=== PATIENT | female | born 1970 ===

== ENCOUNTER 2017-05-11 08:54 | Day surgery (SDC) | payer OTHER ==
[2017-05-02 11:53] VITALS: BMI 21.3
[2017-05-11 10:03] LABS: HEMATOCRIT 25.4 % (34.0-47.0); MEAN CELL VOLUME 70.4 fl (81.0-99.0); MEAN CORPUSCULAR HEMOGLOBIN 21.5 pg (27.0-31.0); MEAN CORPUSCULAR HGB CONC 30.5 g/dL (33.0-37.0); RED CELL DISTRIBUTION WIDTH 22.4 % (11.5-14.5)
--- NOTE | 2017-05-11 11:09 | CP.SDSHP ---
Same Day Surgery H & P - History Proposed Procedure: Laparoscopic BTL/ hysteroscopy and EA Pre-Op Diagnosis: multiparity and voluntary sterilization; severe menorrhagia and hx of anemia - Previous Medical/Surgical History Misc: Anemia Previous Surgical History: ear and eye surgery 1974; Tonsilectomy 1974;TOPx4; D/ C for spt ab. - Allergies Allergies: Allergies No Known Allergies Allergy (Verified 05/11/17 09:56) - Current Medications Current Medications: alprazolan - Physical Exam General Appearance: awake alert w/o x3 Vital Signs: Vital Signs 05/11/17 05/11/17 09:43 09:50 Temperature 98 F Pulse Rate 66 66 Respiratory 18 Rate Blood Pressure 116/70 O2 Sat by Pulse 100 Oximetry Mental Status: Alert & Oriented x3 Neuro: WNL Heart: WNL Lungs: WNL GI: WNL - {Optional Preform as Required} Breast: WNL Abdomen: WNL Integument: WNL QUALITY PROCESS ENGINEER: WNL - Impression Impression: multiparity/voluntary sterilization and severe menorrhagia and hx of anemia - Date & Time Date: 05/11/17 Time: 11:12 Short Stay Discharge - Short Stay Discharge Admitting Diagnosis/Reason for Visit: N92.1/Z64.1/D64.9 Disposition: HOME/ ROUTINE Referrals: Alek Corcoran MD [Primary Care Provider] -
[2017-05-11] MEDS ORDERED: Rocuronium 10 mg/ml (5 ml) ONE (11:28)
[2017-05-11] MEDS ORDERED: Propofol 10 mg/ml Inj (20 ML) ONE (11:28)
[2017-05-11] MEDS ORDERED: ePHEDrine 50 mg/ml Inj ONE ×3 (11:28→12:59)
[2017-05-11] MEDS ORDERED: Succinylcholine 200 mg/10 ml Inj IV ONE (11:28)
[2017-05-11] MEDS ORDERED: Lidocaine 4% (Laryng-O-Jet) Kit MM ONE (11:28)
[2017-05-11] MEDS ORDERED: Midazolam 2 MG/2 ML VIAL ONE (11:31)
[2017-05-11] MEDS ORDERED: Lactated Ringer's 1,000 ML IV ONE (11:45)
[2017-05-11] MEDS ORDERED: Sodium Chloride 0.9% 1,000 ML IV ONE (11:50)
[2017-05-11] MEDS ORDERED: Dexamethasone 4 mg/1 ml ONE (12:12)
[2017-05-11] MEDS ORDERED: Lactated Ringer's 1,000 ML IV SCH ×2 (13:45→15:00)
[2017-05-11] MEDS ORDERED: Oxycodone/Acetaminophen 5/325 mg Tab PO PRN (15:06)
--- NOTE | 2017-05-11 15:14 | CP.SDSHP ---
Same Day Surgery H & P - Allergies Allergies: Allergies No Known Allergies Allergy (Verified 05/11/17 09:56) - Physical Exam Vital Signs: Vital Signs 05/11/17 05/11/17 05/11/17 09:43 09:50 13:37 Temperature 98 F 95.8 F L Pulse Rate 66 66 74 Respiratory 18 18 Rate Blood Pressure 116/70 157/90 H O2 Sat by Pulse 100 100 Oximetry 05/11/17 05/11/17 05/11/17 13:50 14:05 14:20 Temperature 96 F L 96.4 F L 96.6 F L Pulse Rate 68 62 61 Respiratory 18 20 20 Rate Blood Pressure 165/90 H 149/93 H 147/67 O2 Sat by Pulse 100 100 100 Oximetry 05/11/17 14:35 Temperature 97 F L Pulse Rate 58 L Respiratory 20 Rate Blood Pressure 136/71 O2 Sat by Pulse 100 Oximetry Short Stay Discharge - Short Stay Discharge Admitting Diagnosis/Reason for Visit: N92.1/Z64.1/D64.9 Referrals: Alek Corcoran MD [Primary Care Provider] - Follow-up: 2 wks Additional Instructions (Diet, Activity): pelvic and bed rest and folllow up in office 2 wks Progress Note/Discharge Note with Instructions: Tolerated procedure well and recovered well Pt was explained surgery findings and will D/C home this pm when tolerating diet and folllow up office 2 wks Instructons given
[2017-05-11 16:09] VITALS: RESP 18; TEMP 97.9
[2017-05-11] MEDS ORDERED: Oxycodone/Acetaminophen 5/325 mg Tab PO ONE (16:10)
[2017-05-11 17:03] VITALS: BP 143/78; PULSE 66; O2SAT 100
--- NOTE | 2017-05-12 13:16 | OP ---
PROCEDURE DATE: 05/11/2017 PREOPERATIVE DIAGNOSES: 1. Multiparity and voluntary sterilization. 2. Severe menometrorrhagia. 3. History of anemia. POSTOPERATIVE DIAGNOSES: 1. Multiparity and voluntary sterilization. 2. Endometrial polyps. OPERATION PERFORMED: 1. Laparoscopy with bilateral tubal sterilization. 2. Hysteroscopy with endometrial polypectomy and dilatation and curettage. 3. Endometrial ablation using NovaSure. SURGEON: Bobby Cleary MD TYPE OF ANESTHESIA: General endotracheal. ANESTHESIA ADMINISTERED BY: Sarah Keyes MD FINDINGS: 1. Cervix appears closed, thick, posterior. No gross lesion to visualization. 2. Uterus appears boggy to palpation, mobile, upper limit size, sounded to 9 cm. 3. Laparoscopy showed uterus to be upper limit size with a small fibroid on the anterior left aspect of the uterus. 4. Laparoscopic tubal ligation performed using electrocoagulation. 5. Hysteroscopy performed showing a sloughing endometrium and an endometrial polyp, which was removed. 6. Endometrial ablation performed using NovaSure for 45 seconds without any complications. 7. Postprocedure hysteroscopy performed confirmed blanching of the endometrial cavity and laparoscopy revealed no uterine defect from the hysteroscopy and endometrial ablation. ESTIMATED BLOOD LOSS: 100 mL. DRAINS USED: None. REPLACEMENTS USED: None. DESCRIPTION OF PROCEDURE: The patient was taken to the operating room and placed on the operating table in a supine position. Following induction of general endotracheal anesthesia, the patient was then replaced in the dorsal lithotomy position. Perineal, genital and abdominal areas were draped and prepped in a usual sterile manner. At this time, we then proceeded to place a sterile catheter into the bladder and left there for the entire duration of the procedure and clear fluid was then evacuated from the bladder. The patient was then examined under anesthesia with some of the above findings. Heavy-weighted speculum was then placed in the posterior wall of the vagina exposing the cervix. The anterior lip of the cervix appears to be thick. The anterior lip of the cervix was then grasped using a single tooth tenaculum and retracted superiorly. Using a Hector curette, the endocervical canal was then curetted. Minimal amount of tissue obtained and sent to pathology. At this time, we then proceeded to dilate the endocervical canal using João dilators in an increasing size manner. Following this, we then proceeded to place a HUMI cannula in the endometrial canal in order to manipulate the uterus. Attention was then given to the abdomen at the umbilicus. A Veress needle was then introduced into the abdomen and about 5 L of carbon dioxide were then introduced into the abdomen and thus creating a pneumoperitoneum. Following this, Veress needle was then removed and a 1 cm incision was then made at the umbilicus. Through this incision, under direct visualization, a laparoscope was then inserted into the bladder with the trocar. Following this, we then proceeded to introduce the laparoscope and visualization of the area underneath the insertion revealed no signs of bleeding or trauma. At this time, we noticed that the uterus appears to be upper limit size and large, small 1 cm fibroid on the left anterior aspect of the wound. Both tubes and ovaries appeared grossly within normal limits to inspection bilaterally and following this, we then proceeded to introduce a 5 mm trocar under direct visualization suprapubically. Through this trocar sheath, a laparoscopic Kleppinger forceps was then introduced. The right fallopian tube was followed to its fimbriated end and was then electrocoagulaized under direct visualization after being grasped at the ampullary region. About 3 cm session of the tube was electrocoagulaized. Blanching appears to be present and the same procedure was then performed on the contralateral side without any complications. Following this, attention was then given to hysteroscopy. At this time, the HUMI cannula was then removed and the hysteroscope was then placed in the endocervical canal and advanced under direct visualization. Upon entering the endometrial cavity, sloghing on the endometrium was noted to be present and an endometrial polyp was then noted to be present. Polypectomy was then performed and specimen was then sent to pathology for pathological evaluation. At this time, curettage of the endometrial cavity was then performed after removing the hysteroscope under direct visualization. Moderate amount of tissue was then obtained and sent to pathology for proper pathological evaluation. NovaSure apparatus was then introduced into the endometrial cavity and endometrial ablation was then performed using the NovaSure technique for 45 seconds. NovaSure apparatus was then removed and hysteroscope was again performed by advancing the hysteroscope under direct visualization. Upon entering endometrial cavity, blanching of the cavity noted to be present. At this time, hysteroscope was then removed. Attention was again given to the abdomen and through the laparoscopy, the uterus was then visualized. No defects noticed from the hysteroscopy and then the endometrial ablation. Air was then allowed to escape from the abdomen. The incision on the umbilicus and suprapubically were then secured using 0 Vicryl suture for the fascia and Dermabond for the skin. At this time, single-tooth tenaculum had been removed from the cervix. The cervix was visualized. A small area of bleeding noted and a 2-0 chromic was then placed in a [id number] manner. Bleeding was contained. The patient tolerated the procedure well. There were no complications. She was transferred to the recovery room in satisfactory condition. Bobby Cleary MD MTDD
== END 2017-05-11 17:10 | disposition home or self-care (01) ==
LOC: H.OPSURG 08:54
PROVIDERS: ATTEND Specialist
DX: Z64.1 Problems related to multiparity (principal); D64.9 Anemia, unspecified; N84.0 Polyp of corpus uteri; N92.0 Excessive and frequent menstruation with regular cycle; Z30.2 Encounter for sterilization
CPT/HCPCS: 36415; 36430; 58558; 58661; 85027; 86850; 86900; 86920; 88305; J0330; J0694; J1100; J1170; J2001; J2250; J2704; J3010; J7040; J7120; P9051